=== PATIENT | male | born 1965 | race Caucasian/White ===

== ENCOUNTER 2018-03-02 13:32 | Inpatient (IN) | payer OTHER ==
[2018-03-02] MEDS ORDERED: ONDANSETRON HCL INJ/PF 4 MG/2 ML SDV IV ONE (14:19)
[2018-03-02] MEDS ORDERED: MORPHINE SULFATE 10 MG/ML INJ IV ONE ×3 (14:19→19:09)
--- NOTE | 2018-03-02 14:24 | ER Document Report ---
ED General - General Chief Complaint: Chest Pain Stated Complaint: CHEST PAIN Time Seen by Provider: 03/02/18 14:13 Mode of Arrival: Medic Information source: Patient Notes: 52-year-old male brought to the emergency department by EMS for complaints of chest pain. Patient states that the chest pain started on Thursday. He describes it as a pressure sensation across his anterior chest. He states that it resolved but came back again on Thursday and has been constant over the last 2 days. He is having associated nausea, vomiting, diaphoresis. Patient contacted EMS. He was given aspirin in route. Patient denies any alleviating or exacerbating factors. Patient states that he has a history of hypertension, hyperlipidemia and a family history of coronary artery disease. He states that his dad had an NM at age 50. Patient denies a history of diabetes, smoking, coronary artery disease. He also denies any recent travel, recent surgeries, calf swelling, history of DVT or PE. Patient states that he does have left calf pain. Patient states that he has a torn muscle in his left calf that is been bothering him. TRAVEL OUTSIDE OF THE [place] IN LAST 30 DAYS: No - HPI Onset: Other - 2 days Onset/Duration: Constant Quality of pain: Pressure Associated symptoms: Nausea, Vomiting Exacerbated by: Denies Relieved by: Denies Similar symptoms previously: No Recently seen / treated by doctor: No - Related Data Allergies/Adverse Reactions: No Known Allergies Allergy (Verified 03/18/16 15:48) Past Medical History - General Information source: Patient - Social History Smoking Status: Never Smoker Chew tobacco use (# tins/day): No Frequency of alcohol use: every weekend Drug Abuse: None Family History: None Patient has suicidal ideation: No Patient has homicidal ideation: No - Past Medical History Cardiac Medical History: Reports: Hx Hypercholesterolemia, Hx Hypertension Renal/ Medical History: Denies: Hx Peritoneal Dialysis GI Medical History: Reports: Hx Gastroesophageal Reflux Disease, Hx Hiatal Hernia - multiple repairs Psychiatric Medical History: Reports: Hx Anxiety, Hx Depression - anxiety Past Surgical History: Reports: Hx Abdominal Surgery - diverticiulits, Hx Testicular Surgery - left removed, Hx Tonsillectomy - Immunizations Hx Diphtheria, Pertussis, Tetanus Vaccination: Yes Review of Systems - Review of Systems Constitutional: No symptoms reported EENT: No symptoms reported Cardiovascular: Chest pain Respiratory: No symptoms reported Gastrointestinal: Nausea, Vomiting Genitourinary: No symptoms reported Male Genitourinary: No symptoms reported Musculoskeletal: No symptoms reported Skin: No symptoms reported Hematologic/Lymphatic: No symptoms reported Neurological/Psychological: No symptoms reported -: Yes All other systems reviewed and negative Physical Exam - Vital signs Vitals: Resp Pulse Ox 26 H 90 L 03/02/18 13:42 03/02/18 13:42 - Notes Notes: PHYSICAL EXAMINATION: GENERAL: Diaphoretic. HEAD: Atraumatic, normocephalic. EYES: Pupils equal round and reactive to light, extraocular movements intact, sclera anicteric, conjunctiva are normal. ENT: Nares patent, oropharynx clear without exudates. Moist mucous membranes. NECK: Normal range of motion, supple without lymphadenopathy LUNGS: Breath sounds clear to auscultation bilaterally and equal. No wheezes rales or rhonchi. HEART: Tachycardic ABDOMEN: Soft, nontender, nondistended abdomen. No guarding, no rebound. No masses appreciated. Musculoskeletal: Normal range of motion, no pitting edema. Left calf tenderness to palpation. NEUROLOGICAL: Cranial nerves grossly intact. Normal speech, normal gait. Normal sensory, motor exams PSYCH: Normal mood, normal affect. SKIN: Warm, Dry, normal turgor, no rashes or lesions noted. Course - Re-evaluation Re-evalutation: 03/02/18 14:35 EKG: Ventricular rate 127, RI interval 136, QRS duration 112, QTc 454, sinus tachycardia, no ST segment elevation. 03/02/18 19:21 Labs and imaging obtained. 2 sets of cardiac enzymes were done and are normal. D-dimer came back elevated. CTA of the chest was done. No PE appreciated. Venous Doppler of the left lower extremity done and negative. Patient given fluids, nitro, morphine while in the emergency department. Patient continues to be tachycardic around 115. On reevaluation, patient states that he has had some relief in his chest pain but it still present. Patient does not feel comfortable with discharge home. I spoke with the hospitalist, Dr. Holloway. She is agreeable with admitting the patient. Patient is currently stable. - Vital Signs Vital signs: Temp Pulse Resp BP Pulse Ox 98.5 F 21 H 122/93 H 94 03/02/18 14:01 03/02/18 14:01 03/02/18 14:01 03/02/18 14:01 - Laboratory Result Diagrams: 03/02/18 14:30 03/02/18 14:30 Laboratory results interpreted by me: 03/02/18 03/02/18 03/02/18 14:30 14:30 18:23 RBC 4.22 L D-Dimer 2.09 H Urine Protein 30 H Urine Ketones TRACE H Urine Urobilinogen 2.0 H Discharge - Discharge Clinical Impression: Tachycardia Chest pain Qualifiers: Chest pain type: unspecified Qualified Code(s): R07.9 - Chest pain, unspecified Condition: Good Disposition: ADMITTED OBSERVATION Admitting Provider: Hospitalist Unit Admitted: Telemetry
[2018-03-02] MEDS: NITROGLYCERIN 0.4 MG/TAB 25 TAB/BOTTLE SL ONE ×2 (14:38→14:53)
--- NOTE | 2018-03-02 14:39 | RADIOLOGY REPORT (SQ) ---
EXAM DESCRIPTION: CHEST SINGLE VIEW COMPLETED DATE/TIME: 03/02/2018 2:16 pm REASON FOR STUDY: bed 6 cp COMPARISON: 10/13/2014 EXAM PARAMETERS: NUMBER OF VIEWS: One view. TECHNIQUE: Single frontal radiographic view of the chest acquired. RADIATION DOSE: NA LIMITATIONS: Lordotic portable film FINDINGS: LUNGS AND PLEURA: No opacities, masses or pneumothorax. No pleural effusion. MEDIASTINUM AND HILAR STRUCTURES: No masses. Contour normal. HEART AND VASCULAR STRUCTURES: Borderline cardiomegaly accentuated by patient positioning BONES: No acute findings. HARDWARE: None in the chest. OTHER: No other significant finding. IMPRESSION: No acute findings TECHNICAL DOCUMENTATION: JOB ID: [id number] [employer]- All Rights Reserved Reading location - IP/workstation name: [email or web address]
[2018-03-02 14:41] LABS: ABSOLUTE BASOPHILS # (AUTO) 0.1 10^3/uL (0.0-0.2); ABSOLUTE EOSINOPHILS # (AUTO) 0.5 10^3/uL (0.0-0.6); ABSOLUTE LYMPHOCYTES (AUTO) 1.2 10^3/uL (0.5-4.7); ABSOLUTE MONOCYTES (AUTO) 0.9 10^3/uL (0.1-1.4); ABSOLUTE NEUT (AUTO) 6.1 10^3/uL (1.7-8.2); BASOPHILS % (AUTO) 0.8 % (0-2); EOSINOPHILS % (AUTO) 5.4 % (0-6); HEMATOCRIT 38.8 % (37.9-51.0); HEMOGLOBIN 13.6 g/dL (13.5-17.0); LYMPHOCYTES % (AUTO) 13.8 % (13-45); MEAN CORPUSCULAR HEMOGLOBIN 32.2 pg (27.0-33.4); MEAN CORPUSCULAR VOLUME 92 fl (80-97); PLATELET COUNT 153 10^3/uL (150-450); RED BLOOD COUNT 4.22 10^6/uL (4.35-5.55); RED CELL DISTRIBUTION WIDTH 13.4 % (11.5-14.0); TOTAL CELLS COUNTED % (AUTO) 100 %; WHITE BLOOD COUNT 8.8 10^3/uL (4.0-10.5)
[2018-03-02 15:11] LABS: ALANINE AMINOTRANSFERASE 37 U/L (21-72); ALBUMIN 3.5 g/dL (3.5-5.0); ALKALINE PHOSPHATASE 117 U/L (38-126); ANION GAP 10 (5-19); ASPARTATE AMINO TRANSFERASE 35 U/L (17-59); BILIRUBIN,DIRECT 0.4 mg/dL (0.0-0.4); BILIRUBIN,TOTAL 1.1 mg/dL (0.2-1.3); BLOOD UREA NITROGEN 20 mg/dL (7-20); CALCIUM 9.3 mg/dL (8.4-10.2); CARBON DIOXIDE 28 mmol/L (22-30); CHLORIDE 100 mmol/L (98-107); CREATINE KINASE 117 U/L (55-170); GLUCOSE 100 mg/dL (75-110); POTASSIUM 3.7 mmol/L (3.6-5.0); SODIUM 137.8 mmol/L (137-145); TOTAL PROTEIN 6.4 g/dL (6.3-8.2)
[2018-03-02 15:23] LABS: CREATINE KINASE MB 0.92 ng/mL (<4.55); TROPONIN I < 0.012 ng/mL
[2018-03-02] MEDS ORDERED: NORMAL SALINE 1000 ML 1,000 ML IV ONE ×2 (15:42→19:09)
--- NOTE | 2018-03-02 16:31 | RADIOLOGY REPORT (SQ) ---
EXAM DESCRIPTION: VENOUS UNILATERAL LOWER COMPLETED DATE/TIME: 03/02/2018 3:55 pm REASON FOR STUDY: pain left leg pain and swelling left leg COMPARISON: None. TECHNIQUE: Dynamic and static trujillo scale and color images acquired of the left leg venous system. Se lected spectral images acquired with additional compression and augmentation maneuvers. The contralat eral common femoral vein and saphenofemoral junction were also imaged. Images stored on PACS. LIMITATIONS: None. FINDINGS: LEFT COMMON FEMORAL: Normal phasicity, compression and augmentation. No visualized echogenic material on g ray scale. No defects on color images. FEMORAL: Normal compression and augmentation. No visualized echogenic material on trujillo scale. No defe cts on color images. POPLITEAL: Normal compression, augmentation. No visualized echogenic material on trujillo scale. No defec ts on color images. PERONEAL AND POSTERIOR TIBIAL VEINS: Normal compression, augmentation. No visualized echogenic materi al on trujillo scale. No defects on color images. GSV and SSV: Normal compression, augmentation. No visualized echogenic material on trujillo scale. No def ects on color images. ANY DEEP VENOUS INSUFFICIENCY: Not evaluated. ANY EVIDENCE OF POPLITEAL CYST: No. OTHER: No other significant finding. RIGHT COMMON FEMORAL VEIN AND SAPHENOFEMORAL JUNCTION: Normal phasicity, compression and augmentation. No visualized echogenic material on trujillo scale. No de fects on color images. IMPRESSION: NO EVIDENCE OF DVT OR SVT IN THE LEFT LEG. TECHNICAL DOCUMENTATION: JOB ID: [id number] [employer]- All Rights Reserved Reading location - IP/workstation name: [email or web address]
--- NOTE | 2018-03-02 18:00 | RADIOLOGY REPORT (SQ) ---
EXAM DESCRIPTION: CTA CHEST COMPLETED DATE/TIME: 03/02/2018 5:42 pm REASON FOR STUDY: chest pain, tachycardia, elevated d-dimer COMPARISON: None. TECHNIQUE: CT scan of the chest performed using helical scanning technique with dynamic intravenous contrast injection. Images reviewed with lung, soft tissue and bone windows. Reconstructed coronal and sagittal MPR images reviewed. Additional 3 dimensional post-processing performed to develop Maximal Intensity Projection images (NM P). All images stored on PACS. All CT scanners at this facility use dose modulation, iterative reconstruction, and/or weight based d osing when appropriate to reduce radiation dose to as low as reasonably achievable (ALARA). [facility]: Dose Right [facility]: CareDose [facility]: Dose Right [facility]: Teradose 4D [facility]: [employer] CONTRAST TYPE AND DOSE: contrast/concentration: Isovue mg/ml; Total Contrast Delivered: 81.7 ml; To jack Saline Delivered: 80.0 ml Contrast bolus optimized for the pulmonary arteries. Not diagnostic for the aorta. RENAL FUNCTION: BUN 20 creatinine 1.03 RADIATION DOSE: CT Rad equipment meets quality standard of care and radiation dose reduction techniq ues were employed. CTDIvol: 18.2 - 46.3 mGy. DLP: 1293 mGy-cm. . LIMITATIONS: None. FINDINGS: LUNGS AND PLEURA: No masses, infiltrates, or pneumothorax. No pleural effusions or pleura l calcifications. AORTA AND GREAT VESSELS: No aneurysm. Contrast bolus not optimized for the aorta. HEART: No pericardial effusion. Moderate to marked coronary artery calcifications. PULMONARY ARTERIES: No emboli visualized in the main pulmonary arteries or the segmental branches. HILAR AND MEDIASTINAL STRUCTURES: No identified masses or abnormal nodes. HARDWARE: None in the chest. UPPER ABDOMEN: No significant findings. Limited exam. THYROID AND OTHER SOFT TISSUES: No masses. No adenopathy. BONES: No acute or significant finding. 3D MIPS: Confirm above findings. OTHER: No other significant finding. IMPRESSION: NORMAL CTA OF THE CHEST. NO PULMONARY EMBOLI. COMMENT: Quality ID # [id number]: Final reports with documentation of one or more dose reduction techniques (e.g., Automated exposure control, adjustment of the mA and/or kV according to patient size, use of iterative reconstruction technique) TECHNICAL DOCUMENTATION: JOB ID: [id number] [employer]- All Rights Reserved Reading location - IP/workstation name: [email or web address]
[2018-03-02] MEDS ORDERED: LORAZEPAM INJ 2 MG/1 ML VIAL IV ONE ×2 (18:09→23:45)
[2018-03-02 18:51] LABS: APPEARANCE,URINE CLEAR; BILIRUBIN,URINE NEGATIVE (NEGATIVE); COLOR,URINE YELLOW; GLUCOSE, URINE NEGATIVE (NEGATIVE); KETONES,URINE TRACE mg/dL (NEGATIVE); LEUKOCYTE ESTERASE,URINE NEGATIVE (NEGATIVE); NITRITE,URINE NEGATIVE (NEGATIVE); PROTEIN,URINE 30 mg/dL (NEGATIVE)
[2018-03-02 18:52] LABS: URINE SPECIFIC GRAVITY > 1.060
[2018-03-02 19:02] LABS: URINE AMPHETAMINES SCREEN NEGATIVE; URINE BARBITURATES SCREEN NEGATIVE; URINE BENZODIAZEPINES SCREEN NEGATIVE; URINE COCAINE SCREEN NEGATIVE; URINE MARIJUANA (THC) SCREEN NEGATIVE; URINE METHADONE SCREEN NEGATIVE; URINE PHENCYCLIDINE SCREEN NEGATIVE
[2018-03-02] MEDS ORDERED: NITROGLYCERIN 0.4 MG/TAB 25 TAB/BOTTLE SL PRN (21:58)
[2018-03-02] MEDS ORDERED: TRAZODONE HCL 50 MG TABLET PO ONE (21:59)
[2018-03-02] MEDS ORDERED: DEXTROSE 40% GEL 15 GM TUBE PO PRN ×2 (22:00)
[2018-03-02] MEDS ORDERED: PROMETHAZINE HCL INJ 25 MG/1 ML VIAL IV PRN (22:00)
[2018-03-02] MEDS ORDERED: PROMETHAZINE HCL 25 MG TABLET PO PRN (22:00)
[2018-03-02] MEDS ORDERED: DEXTROSE 50%-WATER 25 GM/50 ML DISP.SYRIN IV PRN ×2 (22:00)
[2018-03-02] MEDS ORDERED: ACETAMINOPHEN 325 MG TABLET PO PRN (22:00)
[2018-03-02] MEDS ORDERED: GLUCAGON,HUMAN RECOMB 1 MG INJ SUBCUT PRN (22:00)
[2018-03-02] MEDS ORDERED: MAG HYDROX/AL HYDROX/SIMETH SUSP 30 ML UDCUP PO PRN (22:00)
[2018-03-02] MEDS ORDERED: PROPRANOLOL HCL 40 MG TABLET PO ONE (22:00)
[2018-03-02] MEDS ORDERED: CLONAZEPAM 1 MG TABLET PO PRN (22:06)
[2018-03-02] MEDS: MORPHINE SULFATE 10 MG/ML INJ IV PRN (22:11)
[2018-03-02] MEDS ORDERED: HYDROMORPHONE HCL INJ/PF 2 MG/ML AMPULE IV ONE (23:45)
--- NOTE | 2018-03-03 00:37 | PDOC H&P ---
History of Present Illness Admission Date/PCP: 03/02/18 19:32 Jamel Nava MD Patient complains of: Chest pain History of Present Illness: JUAN VERGARA is a 52 year old male with medical history remarkable for hypertension who comes to the emergency department with intermittent chest pain since last Thursday. Refers the pain as in the center of his chest radiated to the left side, sharp in nature, up to 9-10/10 intensity, at that time he "cannot move", since it is started last week is not going completely away, patient does not take any nitroglycerin at home or any other pain medication. Tells me every time he is a walk-in or doing any exertion like going to the bathroom in the ED the pain comes back really bad. Associated with the pain diaphoresis, nausea, dizziness. Denies vomiting, palpitations, fever or chills. Also complains of lower extremities edema up to his shins on and off. Patient has history of anxiety but tells me that this is different to his anxiety attacks. Denies having any stress test or cardiac catheterization in the past. In the emergency department concerns of his persistent tachycardia and CTA was done which came back negative, patient is on propanolol for his anxiety but he did not take it today. Chest x-ray negative. Patient had aspirin en route to the hospital. In the ED given 4 mg of IV morphine with partial improvement. Given 1 sublingual nitroglycerin but his blood pressure went borderline. Patient complaint of left calf pain and lower extremity ultrasound on the left side was done and came negative for DVT. EKG with a ventricular rate of 127 bpm, no acute ST elevation, ST depression or T wave inversions. 2 sets of cardiac enzymes negative. Past Medical History Cardiac Medical History: Reports: Hyperlipidema, Hypertension Neurological Medical History: Reports: Other - Headaches Endocrine Medical History: Reports: Hypothyroidism GI Medical History: Reports: Diverticulitis, Gastroesophageal Reflux Disease, Hiatal Hernia - multiple repairs Psychiatric Medical History: Reports: Depression - anxiety, General Anxiety Disorder Past Surgical History Past Surgical History: Left testicle removed Partial colon resection secondary to diverticulitis Past Surgical History: Reports: Herniorrhaphy - Hiatal hernia, Tonsillectomy Social History Smoking Status: Never Smoker Frequency of Alcohol Use: Heavy - Patient has a started drinking heavily 2 months ago, drinks 1 bottle a day. Last drink Thursday night. Last Alcohol Use: 02/27/18 Hx Recreational Drug Use: No Drugs: None Hx Prescription Drug Abuse: No Past Social History Note: Lives with his who is at the bedside - Advance Directive Resuscitation Status: Full Code Family History Family History: Father at 50 years old with with history of massive myocardial infarction, mother alive 70 years old with heart problems. Grandmother with quadruple bypass surgery. Parental Family History Reviewed: Yes - As above Children Family History Reviewed: NA Sibling(s) Family History Reviewed.: NA Medication/Allergy Home Medications: Amitriptyline HCl [Elavil 50 mg Tablet] 100 mg PO QHS 03/02/18 Atorvastatin Calcium [Lipitor 40 mg Tablet] 40 mg PO QHS 03/02/18 Duloxetine HCl [Cymbalta] 60 mg PO DAILY 03/02/18 Hydroxyzine Pamoate [Vistaril 25 mg Capsule] 25 mg PO TID 03/02/18 Levothyroxine Sodium [Synthroid 0.112 mg Tablet] 0.112 mg PO Q6AM 03/02/18 Lisinopril [Zestril] 10 mg PO QHS 03/02/18 Propranolol HCl [Inderal 40 mg Tablet] 40 mg PO BID 03/02/18 Ranitidine HCl [Zantac] 300 mg PO DAILY 03/02/18 Allergies/Adverse Reactions: No Known Allergies Allergy (Verified 03/18/16 15:48) Physical Exam Vital Signs: Temp Pulse Resp BP Pulse Ox 98.0 F 118 H 19 103/64 95 03/02/18 22:35 03/02/18 22:35 03/02/18 22:35 03/02/18 22:35 03/02/18 22:35 Intake & Output 03/01/18 03/02/18 03/03/18 06:59 06:59 06:59 Intake Total 1000 Balance 1000 Weight 91.8 kg Additional comments: General appearance: Well-developed, well-nourished, alert and cooperative, and appears to be in acute distress secondary to chest pain/anxiety Head: Normocephalic Eyes: PEERL, EOMI, vision is grossly intact. Ears: External auditory canal and tympanic membranes clear, hearing grossly intact. Nose: No nasal discharge. Throat: Oral cavity and pharynx normal. No inflammation, swelling, exudate or lesions. Neck: Neck supple, nontender without lymphadenopathy, masses or thyromegaly. Cardiac: Normal S1 and S2. No S3, S4 or murmurs. Rhythm is regular and mild tachycardic. There is no peripheral edema, cyanosis or pallor. Extremities are warm and well perfused. Capillary refill is less than 2 seconds. No carotid bruits. Lungs: With bibasilar rales, left more than right, no appreciate rhonchi or wheezing or diminished breath sounds. Not using accessory muscles. Abdomen: Positive bowel sounds. Soft. Nondistended, nontender. No guarding or rebound. No masses. No hepatosplenomegaly Extremities: No significant deformity or joint abnormality. No edema. Peripheral pulses intact. No varicosities. Neurological: Cranial nerves II through XII grossly intact. Strength and sensation symmetric and intact throughout. Reflexes 2+ throughout. Skin: Skin normal color, texture and turgor with no lesions or eruptions, warm and dry. Psychiatric: The mental examination revealed the patient was oriented to person , place, and time. The patient was able to demonstrate good judgment on recent , without hallucinations, abnormal affect or abnormal behaviors. Results Laboratory Results: 03/02/18 03/02/18 03/02/18 14:30 14:30 14:30 WBC 8.8 RBC 4.22 L Hgb 13.6 Hct 38.8 MCV 92 MCH 32.2 MCHC 35.0 RDW 13.4 Plt Count 153 Seg Neutrophils % 70.0 Lymphocytes % 13.8 Monocytes % 10.0 Eosinophils % 5.4 Basophils % 0.8 Absolute Neutrophils 6.1 Absolute Lymphocytes 1.2 Absolute Monocytes 0.9 Absolute Eosinophils 0.5 Absolute Basophils 0.1 D-Dimer Sodium 137.8 Potassium 3.7 Chloride 100 Carbon Dioxide 28 Anion Gap 10 BUN 20 Creatinine 1.03 Est GFR ( Amer) > 60 Est GFR (Non-Af Amer) > 60 Glucose 100 Calcium 9.3 Total Bilirubin 1.1 Direct Bilirubin 0.4 AST 35 ALT 37 Alkaline Phosphatase 117 Creatine Kinase 117 CK-MB (CK-2) 0.92 Troponin I < 0.012 Total Protein 6.4 Albumin 3.5 Urine Color Urine Appearance Urine pH Ur Specific [place] Urine Protein Urine Glucose (UA) Urine Ketones Urine Blood Urine Nitrite Urine Bilirubin Urine Urobilinogen Ur Leukocyte Esterase Urine WBC (Auto) Urine RBC (Auto) Squamous Epi Cells Auto Urine Mucus (Auto) Urine Ascorbic Acid Urine Opiates Screen Urine Methadone Screen Ur Barbiturates Screen Ur Phencyclidine Scrn Ur Amphetamines Screen U Benzodiazepines Scrn Urine Cocaine Screen U Marijuana (THC) Screen 03/02/18 03/02/18 03/02/18 14:30 17:46 18:23 WBC RBC Hgb Hct MCV MCH MCHC RDW Plt Count Seg Neutrophils % Lymphocytes % Monocytes % Eosinophils % Basophils % Absolute Neutrophils Absolute Lymphocytes Absolute Monocytes Absolute Eosinophils Absolute Basophils D-Dimer 2.09 H Sodium Potassium Chloride Carbon Dioxide Anion Gap BUN Creatinine Est GFR ( Amer) Est GFR (Non-Af Amer) Glucose Calcium Total Bilirubin Direct Bilirubin AST ALT Alkaline Phosphatase Creatine Kinase CK-MB (CK-2) Troponin I < 0.012 Total Protein Albumin Urine Color YELLOW Urine Appearance CLEAR Urine pH 5.0 Ur Specific [place] > 1.060 Urine Protein 30 H Urine Glucose (UA) NEGATIVE Urine Ketones TRACE H Urine Blood NEGATIVE Urine Nitrite NEGATIVE Urine Bilirubin NEGATIVE Urine Urobilinogen 2.0 H Ur Leukocyte Esterase NEGATIVE Urine WBC (Auto) 2 Urine RBC (Auto) 7 Squamous Epi Cells Auto <1 Urine Mucus (Auto) FEW Urine Ascorbic Acid NEGATIVE Urine Opiates Screen Urine Methadone Screen Ur Barbiturates Screen Ur Phencyclidine Scrn Ur Amphetamines Screen U Benzodiazepines Scrn Urine Cocaine Screen U Marijuana (THC) Screen 03/02/18 18:23 WBC RBC Hgb Hct MCV MCH MCHC RDW Plt Count Seg Neutrophils % Lymphocytes % Monocytes % Eosinophils % Basophils % Absolute Neutrophils Absolute Lymphocytes Absolute Monocytes Absolute Eosinophils Absolute Basophils D-Dimer Sodium Potassium Chloride Carbon Dioxide Anion Gap BUN Creatinine Est GFR ( Amer) Est GFR (Non-Af Amer) Glucose Calcium Total Bilirubin Direct Bilirubin AST ALT Alkaline Phosphatase Creatine Kinase CK-MB (CK-2) Troponin I Total Protein Albumin Urine Color Urine Appearance Urine pH Ur Specific [place] Urine Protein Urine Glucose (UA) Urine Ketones Urine Blood Urine Nitrite Urine Bilirubin Urine Urobilinogen Ur Leukocyte Esterase Urine WBC (Auto) Urine RBC (Auto) Squamous Epi Cells Auto Urine Mucus (Auto) Urine Ascorbic Acid Urine Opiates Screen UNCONFIRMED POSITIVE Urine Methadone Screen NEGATIVE Ur Barbiturates Screen NEGATIVE Ur Phencyclidine Scrn NEGATIVE Ur Amphetamines Screen NEGATIVE U Benzodiazepines Scrn NEGATIVE Urine Cocaine Screen NEGATIVE U Marijuana (THC) Screen NEGATIVE EKG Comments: Sinus tachycardia with a ventricular rate of 127 bpm, no acute ST elevation, ST depressions or T wave inversions. Impressions: Chest X-Ray 03/02/18 13:35 IMPRESSION: No acute findings Venous Doppler Study 03/02/18 14:20 IMPRESSION: NO EVIDENCE OF DVT OR SVT IN THE LEFT LEG. Chest/Abdomen CTA 03/02/18 16:24 IMPRESSION: NORMAL CTA OF THE CHEST. NO PULMONARY EMBOLI. Assessment & Plan - Diagnosis (1) Chest pain Qualifiers: Chest pain type: unspecified Qualified Code(s): R07.9 - Chest pain, unspecified Is this a current diagnosis for this admission?: Yes Plan: Patient complains of chest since last Thursday, he refers to me this as sharp and by the ED attending documented tightness, seems to be exertional chest pain. Never had a stress test or cardiac catheterization. Will place the patient on telemetry monitoring. So far 2 cardiac enzymes negative, will complete 3. Nitroglycerin sublingual as needed if his blood pressure tolerates that, morphine 1 mg every 3 hours IV as needed. A stress test during the day. Hemoglobin A1c and lipid panel in the morning. Strong family history of cardiac disease. In the ED a total of 13 mg IV morphine given; when the patient was transferred to the floor he was still complaining of chest pains. Given 1 mg of Dilaudid IV +1 mg of Ativan IV. Will monitor. (2) Alcohol dependence Is this a current diagnosis for this admission?: Yes Plan: Patient has started drinking heavily 2 months ago. I am not sure if his tachycardia is related to alcohol withdrawal symptoms, will watch for alcohol withdrawal, and placing him on Ativan 2 mg IV as needed for withdrawal symptomatology. His last drink was last Thursday. I am adding serum alcohol levels to prior labs. (3) Anxiety Is this a current diagnosis for this admission?: Yes Plan: His tachycardia is possible related with his anxiety. CTA negative. Chest x- ray negative. Patient missed his dose of propranolol today. Were going to give his dose of propanolol tonight as per his is 40 mg. Will be on Klonopin 0.5 mg as needed. Trazodone 50 mg p.o. given. (4) Hypothyroidism Qualifiers: Hypothyroidism type: unspecified Qualified Code(s): E03.9 - Hypothyroidism , unspecified Is this a current diagnosis for this admission?: Yes Plan: Continue with Synthroid (5) Hypertension Qualifiers: Hypertension type: essential hypertension Qualified Code(s): I10 - Essential (primary) hypertension Is this a current diagnosis for this admission?: Yes Plan: Will resume his antihypertensive medications for tomorrow, if blood pressure still borderline were going to place him on hold. - Time Time Spent: 50 to 70 Minutes
[2018-03-03] MEDS: MORPHINE SULFATE 10 MG/ML INJ IV PRN ×5 (03:10→23:34)
[2018-03-03] MEDS: LORAZEPAM INJ 2 MG/1 ML VIAL IV PRN (03:10)
[2018-03-03 07:05] LABS: CHOLESTEROL 168.71 mg/dL (0-200); TRIGLYCERIDES 95 mg/dL (<150)
[2018-03-03 07:16] LABS: DIRECT LDL 114 mg/dL (<100)
--- NOTE | 2018-03-03 07:27 | EKG REPORT ---
SEVERITY:- ABNORMAL ECG - SINUS TACHYCARDIA NONSPECIFIC IVCD WITH LAD : Confirmed by: Jim Borden 03-Mar-2018 07:26:01
--- NOTE | 2018-03-03 11:58 | PDOC DISCHARGE SUMMARY ---
General - Admit/Disc Date/PCP Admission Date/Primary Care Provider: 03/02/18 19:32 Discharge Date: 03/03/18 - Discharge Diagnosis (1) Chest pain Is this a current diagnosis for this admission?: Yes Summary: The patient was admitted yesterday for substernal chest pain. For troponin studies were less than 0.012. There was no relief with nitroglycerin or morphine. The chest pain is likely noncardiac. CT angiogram does show coronary artery disease and there is a positive family history. For that reason I am referring him to cardiology and he will need an outpatient stress test. He also states in the past he has had an echocardiogram that showed enlarged heart but he cannot remember an ejection fraction or any other issues. (2) GERD with esophagitis Is this a current diagnosis for this admission?: Yes Summary: The patient is describing pain consistent with esophagitis and possibly esophageal spasm. He is only been on an H2 lyn. I have given him prescriptions for Carafate and Protonix. He is also on propranolol and amitriptyline and these can possibly help esophageal spasm. He does have a history of alcohol dependence. I am going to give him a dose of Protonix and Carafate prior to discharge. I also strongly suggested that he see gastroenterology. Unfortunately states that he cannot get his prescription filled because [facility]. I told him that he should do over-the- counter Prilosec 40 mg twice daily and a Tums tablet before meals and at bedtime until he can get his prescriptions filled. He absolutely needs to see cardiology, GI and primary care. It is unlikely that his hypothyroidism is responsible for any symptoms. (3) Hypothyroidism Is this a current diagnosis for this admission?: Yes Summary: Continue levothyroxine 112 mcg daily. Follow-up with primary care/ endocrinology for blood work. (4) Anxiety Is this a current diagnosis for this admission?: Yes Summary: Anxiety certainly is a contributor to noncardiac chest pain. This also could be contributing to tachycardia (as can his discomfort). He should continue on his amitriptyline. Propranolol can also help with anxiety somewhat. He should follow-up with his primary care physician for additional treatment possibilities. (5) Alcohol dependence Is this a current diagnosis for this admission?: Yes Summary: Patient has not exhibited acute withdrawal symptoms. With a history of alcohol dependency certainly is at risk for esophagitis and esophageal varices as well as gastritis. The Carafate and Protonix certainly will help with any GI symptoms. As noted above he should follow-up with gastroenterology and his primary care physician. Consider mental health counseling for alcohol dependence. - Additional Information Resuscitation Status: Full Code Discharge Activity: Balance Activity w/Rest Prescriptions: Pantoprazole Sodium [Protonix] 40 mg PO DAILY 30 Days #30 tablet. Sucralfate [Carafate 1 gm Tablet] 1 gm PO ACHS #120 tablet Home Medications: Amitriptyline HCl [Elavil 50 mg Tablet] 100 mg PO QHS 03/02/18 Atorvastatin Calcium [Lipitor 40 mg Tablet] 40 mg PO QHS 03/02/18 Duloxetine HCl [Cymbalta] 60 mg PO DAILY 03/02/18 Hydroxyzine Pamoate [Vistaril 25 mg Capsule] 25 mg PO TID 03/02/18 Levothyroxine Sodium [Synthroid 0.112 mg Tablet] 0.112 mg PO Q6AM 03/02/18 Lisinopril [Zestril] 10 mg PO QHS 03/02/18 Propranolol HCl [Inderal 40 mg Tablet] 40 mg PO BID 03/02/18 Pantoprazole Sodium [Protonix] 40 mg PO DAILY 30 Days #30 tablet. 03/03/18 Sucralfate [Carafate 1 gm Tablet] 1 gm PO ACHS #120 tablet 03/03/18 History of Present Illness History of Present Illness: JUAN VERGARA is a 52 year old male who was admitted last evening for substernal chest pain. He has a family history of heart disease. He states that he had an echocardiogram in the past and they said he had a "big heart" but he was unaware of details. His serial troponins x4 were less than the detectable limit of 0.012. He did go down for a stress test but was having substernal discomfort. The stress test was not done. He should follow-up with cardiology as an outpatient (coronary artery disease seen on CT angiogram of the chest) as well as gastroenterology for the high likelihood of reflux or possibly hiatal hernia. Hospital Course Hospital Course: The patient had a benign hospital course. His substernal chest pain was not relieved with nitroglycerin or morphine and it is most likely esophageal in nature. I did discuss with the patient the possibilities of hiatal hernia ( mother does have 1) as well as reflux. He does state that he has a low trigger for emesis and this could be a product of severe reflux as well. Physical Exam Vital Signs: Temp Pulse Resp BP Pulse Ox 97.8 F 105 H 18 114/91 H 95 03/03/18 07:25 03/03/18 07:25 03/03/18 07:25 03/03/18 07:25 03/03/18 07:25 Intake & Output 03/02/18 03/03/18 03/04/18 06:59 06:59 06:59 Intake Total 1000 Balance 1000 Weight 91.8 kg General appearance: PRESENT: mild distress, well-developed Eye exam: PRESENT: conjunctiva pink. ABSENT: scleral icterus Ear exam: PRESENT: normal external ear exam Mouth exam: PRESENT: dry mucosa Neck exam: ABSENT: carotid bruit, JVD, lymphadenopathy Respiratory exam: PRESENT: clear to auscultation duane, symmetrical, unlabored. ABSENT: rales, rhonchi, wheezes Cardiovascular exam: PRESENT: +S1, +S2, tachycardia Pulses: PRESENT: normal carotid pulses GI/Abdominal exam: PRESENT: normal bowel sounds, soft. ABSENT: guarding, tenderness Extremities exam: ABSENT: calf tenderness, joint swelling, pedal edema Musculoskeletal exam: PRESENT: normal inspection Neurological exam: PRESENT: alert, awake, oriented to person, oriented to place , oriented to situation Psychiatric exam: PRESENT: anxious, appropriate affect. ABSENT: depressed Focused psych exam: ABSENT: delusional, paranoid, restlessness Results Laboratory Results: 03/03/18 05:46 Triglycerides 95 Cholesterol 168.71 LDL Cholesterol Direct 114 H VLDL Cholesterol 19.0 HDL Cholesterol 53 03/03/18 03/03/18 00:06 05:46 Troponin I < 0.012 < 0.012 Impressions: Chest X-Ray 03/02/18 13:35 IMPRESSION: No acute findings Venous Doppler Study 03/02/18 14:20 IMPRESSION: NO EVIDENCE OF DVT OR SVT IN THE LEFT LEG. Chest/Abdomen CTA 03/02/18 16:24 IMPRESSION: NORMAL CTA OF THE CHEST. NO PULMONARY EMBOLI. Qualifiers - * PATIENT BEING DISCHARGED WITH ANY OF THE FOLLOWING DIAGNOSIS: No Plan Discharge Plan: As noted above the patient will be discharged on an aggressive regimen for reflux including Carafate and Protonix. I did give him a suggested regimen of [id number] omeprazole and Tums until he can get his prescriptions filled. He had 4- troponin studies. I did refer him to cardiology and he will need a stress test as an outpatient. He also reports a history of cardiomegaly etiology unknown. He should have an echocardiogram as well. Because of his family history and his current symptoms I strongly suggested a gastroenterology appointment with likely endoscopy. Time Spent: Greater than 30 Minutes
[2018-03-03] MEDS ORDERED: PANTOPRAZOLE SODIUM 40 MG VIAL IV ONE (12:30)
[2018-03-03] MEDS ORDERED: SUCRALFATE 1 GM TABLET PO ONE (13:00)
[2018-03-03] MEDS: HYDROXYZINE PAMOATE 25 MG CAPSULE PO SCH ×2 (14:03→18:46)
[2018-03-03] MEDS: ENOXAPARIN SODIUM INJ 40 MG/0.4 ML DISP.SYRIN SUBCUT SCH (14:05)
[2018-03-03] MEDS ORDERED: DEXTROSE 50%-WATER 25 GM/50 ML DISP.SYRIN IV PRN ×2 (17:30)
[2018-03-03] MEDS ORDERED: GLUCAGON,HUMAN RECOMB 1 MG INJ SUBCUT PRN (17:30)
[2018-03-03] MEDS ORDERED: DEXTROSE 40% GEL 15 GM TUBE PO PRN ×2 (17:30)
[2018-03-03] MEDS ORDERED: PROPRANOLOL HCL 40 MG TABLET PO SCH ×2 (18:00→22:00)
--- NOTE | 2018-03-03 19:37 | PDOC CONSULTATION ---
Consultation Consult Date: 03/03/18 Attending physician:: AAYUSH STEWART Consult reason:: Chest pain History of Present Illness Admission Date/PCP: 03/02/18 19:32 Patient complains of: Chest pain History of Present Illness: JUAN VERGARA is a 52 year old male with medical history remarkable for hypertension, dyslipidemia and family history of premature CAD who comes to the emergency department with intermittent chest pain since last Thursday. Refers the pain as in the center of his chest radiated to the left side, sharp in nature, up to 9-10/10 intensity, at that time he "cannot move", since it is started last week is not going completely away, patient does not take any nitroglycerin at home or any other pain medication. Tells me every time he is a walk-in or doing any exertion like going to the bathroom in the ED the pain comes back really bad. Associated with the pain diaphoresis, nausea, dizziness. Denies vomiting, palpitations, fever or chills. Also complains of lower extremities edema up to his shins on and off. Patient has history of anxiety but tells me that this is different to his anxiety attacks. Denies having any stress test or cardiac catheterization in the past. In the emergency department concerns of his persistent tachycardia and CTA was done which came back negative, patient is on propanolol for his anxiety but he did not take it today. Chest x-ray negative. Patient had aspirin en route to the hospital. In the ED given 4 mg of IV morphine with partial improvement. Given 1 sublingual nitroglycerin but his blood pressure went borderline. Patient complaint of left calf pain and lower extremity ultrasound on the left side was done and came negative for DVT. EKG with a ventricular rate of 127 bpm, no acute ST elevation, ST depression or T wave inversions. 2 sets of cardiac enzymes negative. This history obtained by the hospitalist was reviewed. Patient gives history of hypertension, dyslipidemia and also family history of premature coronary artery disease. Patient claims he used to run marathons in the past but stopped doing it few years ago. Patient denied any known history of coronary artery disease. He had a CT angiogram of the chest which did reveal coronary calcification. This is indicative of CAD. Patient scheduled for a 2D echocardiogram and a nuclear stress test. Patient looks well flushed. He does take alcohol on a regular basis. He denies however getting drunk. Past Medical History Cardiac Medical History: Reports: Hyperlipidema, Hypertension Neurological Medical History: Reports: Other - Headaches Endocrine Medical History: Reports: Hypothyroidism GI Medical History: Reports: Diverticulitis, Gastroesophageal Reflux Disease, Hiatal Hernia - multiple repairs Psychiatric Medical History: Reports: Depression - anxiety, General Anxiety Disorder Past Surgical History Past Surgical History: Reports: Herniorrhaphy - Hiatal hernia, Tonsillectomy Social History Information Source: Patient Smoking Status: Never Smoker Frequency of Alcohol Use: Heavy - Patient has a started drinking heavily 2 months ago, drinks 1 bottle a day. Last drink Thursday night. Hx Recreational Drug Use: No Drugs: None Hx Prescription Drug Abuse: No - Advance Directive Resuscitation Status: Full Code Family History Family History: CAD - Premature CAD on his mother's side including his mother. Parental Family History Reviewed: Yes Children Family History Reviewed: Yes Sibling(s) Family History Reviewed.: Yes Medication/Allergy Home Medications: Amitriptyline HCl [Elavil 50 mg Tablet] 100 mg PO QHS 03/02/18 Atorvastatin Calcium [Lipitor 40 mg Tablet] 40 mg PO QHS 03/02/18 Duloxetine HCl [Cymbalta] 60 mg PO DAILY 03/02/18 Hydroxyzine Pamoate [Vistaril 25 mg Capsule] 25 mg PO TID 03/02/18 Levothyroxine Sodium [Synthroid 0.112 mg Tablet] 0.112 mg PO Q6AM 03/02/18 Lisinopril [Zestril] 10 mg PO QHS 03/02/18 Propranolol HCl [Inderal 40 mg Tablet] 40 mg PO BID 03/02/18 Pantoprazole Sodium [Protonix] 40 mg PO DAILY 30 Days #30 tablet.dr 03/03/18 Sucralfate [Carafate 1 gm Tablet] 1 gm PO ACHS #120 tablet 03/03/18 Allergies/Adverse Reactions: No Known Allergies Allergy (Verified 03/18/16 15:48) Review of Systems Review of Systems: Please see history of present illness and past medical history as wall. Constitutional: No fever or chills reported. Head : No recent chronic headaches, recent head injury. Eyes: No recent eye pain, diplopia, redness, discharge, acute visual changes. Ears: No recent chronic ear pain, acute hearing loss, ear discharge. Oral cavity: No recent ulcerations, bleeding, oral cavity discomfort. Neck: No recent acute neck pain reported. Hematologic: No recent easy bruising or bleeding. Lymphatic: No recent lymph node enlargement reported. Cardiovascular system review: See history of present illness. Respiratory system review: No hemoptysis or blood clots in the lungs reported. Mild Shortness of breath on exertion Gastrointestinal system review: Negative for any recent acute hematemesis, melena. History of reflux Genitourinary system review: No recent acute or chronic hematuria, flank pain, UTI etc. reported. Skin system review: Negative for any recent abnormal bruising, no rash, no pruritus reported. Neurologic: No prior history of strokes, mini strokes, seizure disorder. Psychologic: No history of major psychosis or major depression reported. History of anxiety disorder and other dysthymia Musculoskeletal: Minor aches and pains reported. No acute joint swelling reported. Endocrine: No recent polyuria, polydipsia, recent heat or cold intolerance. Physical Exam Vital Signs: Temp Pulse Resp BP Pulse Ox 98.2 F 120 H 16 120/71 96 03/03/18 15:22 03/03/18 15:22 03/03/18 15:22 03/03/18 15:22 03/03/18 15:22 Intake & Output 03/02/18 03/03/18 03/04/18 06:59 06:59 06:59 Intake Total 1000 828 Balance 1000 828 Weight 91.8 kg Results Laboratory Results: 03/03/18 05:46 Triglycerides 95 Cholesterol 168.71 LDL Cholesterol Direct 114 H VLDL Cholesterol 19.0 HDL Cholesterol 53 03/03/18 03/03/18 03/03/18 00:06 05:46 11:40 Troponin I < 0.012 < 0.012 < 0.012 EKG Comments: Sinus tachycardia, no acute ST-T wave changes are noted Impressions: Chest X-Ray 03/02/18 13:35 IMPRESSION: No acute findings Venous Doppler Study 03/02/18 14:20 IMPRESSION: NO EVIDENCE OF DVT OR SVT IN THE LEFT LEG. Chest/Abdomen CTA 03/02/18 16:24 IMPRESSION: NORMAL CTA OF THE CHEST. NO PULMONARY EMBOLI. Assessment & Plan - Diagnosis (1) Chest pain Qualifiers: Chest pain type: unspecified Qualified Code(s): R07.9 - Chest pain, unspecified Is this a current diagnosis for this admission?: Yes (2) GERD with esophagitis Is this a current diagnosis for this admission?: Yes (3) Hypertension Qualifiers: Hypertension type: essential hypertension Qualified Code(s): I10 - Essential (primary) hypertension Is this a current diagnosis for this admission?: Yes (4) Hypothyroidism Qualifiers: Hypothyroidism type: unspecified Qualified Code(s): E03.9 - Hypothyroidism , unspecified Is this a current diagnosis for this admission?: Yes (5) Tachycardia Is this a current diagnosis for this admission?: Yes (6) Hyperlipidemia Qualifiers: Hyperlipidemia type: unspecified Qualified Code(s): E78.5 - Hyperlipidemia , unspecified Is this a current diagnosis for this admission?: Yes (7) Coronary artery calcification seen on computed tomography Is this a current diagnosis for this admission?: Yes (8) Alcohol dependence Qualifiers: Substance use status: uncomplicated Qualified Code(s): F10.20 - Alcohol dependence, uncomplicated Is this a current diagnosis for this admission?: Yes (9) Anxiety Is this a current diagnosis for this admission?: Yes - Notes Notes: Chest pain: Intermediate probability that the chest discomfort is from CAD. Patient has been noted to have coronary calcification. A nuclear stress test has been scheduled. Gastroesophageal reflux: Patient being placed on proton pump inhibitor. Patient will need endoscopy at a later date. Hypertension: Blood pressure goal should be 135/85 or less in this young patient with underlying CAD. Hypothyroidism: I am checking a TSH level. Patient is tachycardic therefore may have iatrogenic hyperthyroidism. Hyperlipidemia: Agree with high potency statin therapy. Coronary calcification: Treat with statins. Nuclear stress test scheduled. 2D echo is scheduled. Alcohol dependence: Discussed diet it can cause cardiomyopathy, distal esophagitis etc. patient has been advised abstinence. Anxiety: Possible withdrawal. Tachycardia: Possible withdrawal versus excess thyroid replacement versus anxiety. - Time Time Spent: 30 to 50 Minutes - CODE STATUS was discussed, patient remains full code. Surrogate decision-maker unchanged. Multiple medical problems were addressed. More than 50% of the time spent coordinating care, discussing management plans with involved caregivers. Management plans discussed with involved personnels. Medical decision making was of moderate to high complexity , patient's has multiple comorbidities. Medications reviewed and adjusted accordingly: Yes
[2018-03-03] MEDS: AMITRIPTYLINE HCL 50 MG TABLET PO SCH (23:38)
[2018-03-03] MEDS: LISINOPRIL 10 MG TABLET PO SCH (23:38)
[2018-03-03] MEDS: ATORVASTATIN CALCIUM 40 MG TABLET PO SCH (23:39)
[2018-03-03] MEDS: PANTOPRAZOLE SODIUM 40 MG VIAL IV SCH (23:40)
[2018-03-04] MEDS: MORPHINE SULFATE 10 MG/ML INJ IV PRN ×3 (06:18→14:21)
[2018-03-04] MEDS: LEVOTHYROXINE SODIUM 0.112 MG TABLET PO SCH (06:19)
[2018-03-04] MEDS: PANTOPRAZOLE SODIUM 40 MG VIAL IV SCH ×2 (12:23→21:34)
[2018-03-04] MEDS: ENOXAPARIN SODIUM INJ 40 MG/0.4 ML DISP.SYRIN SUBCUT SCH (12:27)
[2018-03-04] MEDS ORDERED: PROMETHAZINE HCL INJ 25 MG/1 ML VIAL IV PRN (13:00)
[2018-03-04] MEDS ORDERED: REGADENOSON INJ 0.4 MG/5 ML DISP.SYRIN IV ONE (14:04)
[2018-03-04] MEDS ORDERED: AMINOPHYLLINE INJ/PF 250 MG/10 ML SDV IV ONE (14:04)
[2018-03-04] MEDS: HYDROXYZINE PAMOATE 25 MG CAPSULE PO SCH ×3 (14:26→18:38)
--- NOTE | 2018-03-04 14:41 | DRAGON STRESS TEST REPORT ---
INTRAVENOUS LEXISCAN CARDIOLITE STRESS TEST USING SINGLE PHOTON EMMISION COMPUTERIZED TOMOGRAPHIC. DATE OF PROCEDURE: March 04, 2018, INDICATION : Chest pain CARDIAC RISK FACTORS: Diabetes, hypertension, dyslipidemia RESTING EKG: Sinus rhythm, no acute ST-T wave changes are noted. STRESS EKG: No significant ST segment changes noted with LexiScan bolus REASON FOR TERMINATION: Protocol. PROCEDURE REPORT: Baseline heart rate 104 beats per minute with blood pressure of 98/69. Patient had no significant complaints. Patient was bolused with Lexiscan 0.4 mg intravenously followed by saline bolus. Heart rate at 2 minutes post bolus 115 with a blood pressure of 107/47. 3 minutes post bolus heart rate 114 with blood pressure of 106/52. No significant EKG changes were noted. Patient had no significant complaints during the procedure or postprocedure. CONCLUSIONS: Normal EKG and hemodynamic response to IV LexiScan. NUCLEAR DATA: At rest the patient was given 10.66 millicuries of technetium 99 sestamibi injected intravenously. As per protocol rest gated SPECT images were obtained. On day of stress test, the patient was given intravenous LexiScan at a dose of 0.4 mg in 5 mL intravenously, followed by flush with normal saline. Subsequently the stress dose of 30.7 millicuries of technetium 99 sestamibi was injected intravenously. As per protocol stress gated images were obtained. NUCLEAR INTERPRETATION: Both raw and processed data were used for interpretation. Visual, qualitative, computer-generated quantitative data was used. There was good myocardial uptake of technetium compound. Motion artifact and soft tissue attenuations were noted. Increased visceral uptake was noted. No definitive areas of transient perfusion defect noted, No definitive areas of fixed perfusion defect or scars noted. EKG gated imaging showed LV EF at 38 %, rest and stress gated EF similar visually. Mild diffuse hypokinesia noted. T. I D. ratio was 1.11. Lung heart ratio noted to be within normal limits 0.34. No significant extracardiac and abnormal radiotracer activities were noted. RV free wall uptake was noted to be WNL. IMPRESSION: Also refer to comments under nuclear interpretation. Also test results needs to be interpreted in the context of pretest probability. 1. No definitive areas of transient perfusion defect noted. 2. There is no definitive scintigraphic evidence of myocardial infarction/scar. 3. EKG gated imaging shows left ventricular ejection fraction of approx. 38 %. Mild diffuse hypokinesia noted. 4. Clinical correlation requested as worse disease and or balanced ischemia could be missed. In approximately 10% of the cases Lexiscan may not cause adequate vasodilatory stress. RECOMMENDATIONS: Aggressive risk factor modification and medical management. Further evaluation may be needed if continued symptoms or other high risk indicators are noted on clinical evaluation. Close cardiology follow-up is also recommended. Clinical correlation with echocardiogram derived ejection fraction. Inability to exercise by itself can lead to increased cardiovascular event risks. Consider cardiology consultation and or follow-up if clinically indicated. I am available for cardiology evaluation and consultation if requested by the housing inspector, unless patient already has a elementary school professional. Dr. Maria T Borden. MRCP Board certified in cardiology and sleep medicine. Board certified in nuclear cardiology, adult echocardiography. ANKUR
[2018-03-04] MEDS ORDERED: KETOROLAC TROMETHAMINE INJ/PF 30 MG/1 ML SDV IV ONE (17:02)
[2018-03-04] MEDS ORDERED: OXYCODONE-ACETAMINOPHEN 5-325 MG TABLET PO PRN (17:03)
[2018-03-04] MEDS ORDERED: MORPHINE SULFATE 10 MG/ML INJ IV PRN (17:03)
--- NOTE | 2018-03-04 20:32 | PDOC PROGRESS REPORT ---
Subjective Progress Note for:: 03/04/18 Subjective:: The patient is still having significant substernal discomfort Reason For Visit: CHEST PAIN Physical Exam Vital Signs: Temp Pulse Resp BP Pulse Ox 98.1 F 112 H 19 120/72 96 03/04/18 12:13 03/04/18 14:00 03/04/18 12:13 03/04/18 12:13 03/04/18 12:13 Intake & Output 03/03/18 03/04/18 03/05/18 06:59 06:59 06:59 Intake Total 237 Balance 237 General appearance: PRESENT: cooperative, mild distress, well-developed Head exam: PRESENT: atraumatic, normocephalic Eye exam: PRESENT: conjunctiva pink, EOMI. ABSENT: scleral icterus Ear exam: PRESENT: normal external ear exam Mouth exam: PRESENT: dry mucosa Neck exam: PRESENT: full ROM. ABSENT: carotid bruit, JVD, lymphadenopathy Respiratory exam: PRESENT: clear to auscultation duane, symmetrical, unlabored. ABSENT: rales, rhonchi, wheezes Cardiovascular exam: PRESENT: +S1, +S2, tachycardia GI/Abdominal exam: PRESENT: normal bowel sounds, soft. ABSENT: firm, guarding, tenderness Extremities exam: ABSENT: calf tenderness, pedal edema Neurological exam: PRESENT: alert, awake, oriented to person, oriented to place , oriented to time, oriented to situation Psychiatric exam: PRESENT: appropriate affect - Affect reflects his discomfort Focused psych exam: ABSENT: euphoric, paranoid, restlessness Results Impressions: Chest X-Ray 03/02/18 13:35 IMPRESSION: No acute findings Venous Doppler Study 03/02/18 14:20 IMPRESSION: NO EVIDENCE OF DVT OR SVT IN THE LEFT LEG. Chest/Abdomen CTA 03/02/18 16:24 IMPRESSION: NORMAL CTA OF THE CHEST. NO PULMONARY EMBOLI. Assessment & Plan - Diagnosis (1) Depressed left ventricular ejection fraction Is this a current diagnosis for this admission?: Yes Plan: The nuclear study revealed no reversible ischemia. However it did suggest a depressed ejection fraction at 38%. I discussed this with cardiology. We have ordered an echocardiogram to confirm function. He may have a cardiomyopathy. He will need to follow-up with cardiology as an outpatient. (2) Chest pain Qualifiers: Chest pain type: unspecified Qualified Code(s): R07.9 - Chest pain, unspecified Is this a current diagnosis for this admission?: Yes Plan: The chest pain is esophageal in etiology. See discussion below. (3) GERD with esophagitis Is this a current diagnosis for this admission?: Yes Plan: The CT scan revealed thickening of the esophagus. I am going to continue the Protonix and Carafate. In addition I have started nifedipine for possible esophageal spasm. He also ordered blood work to rule out any autoimmune etiology. The patient will need to follow-up with gastroenterology and he needs a gastroscopy. (4) Hypothyroidism Qualifiers: Hypothyroidism type: unspecified Qualified Code(s): E03.9 - Hypothyroidism , unspecified Is this a current diagnosis for this admission?: Yes Plan: Continue levothyroxine 112 mcg daily (5) Anxiety Is this a current diagnosis for this admission?: Yes Plan: The patient is still anxious but I believe it is driven by his pain. I have altered his pain medications. He has hydroxyzine scheduled and clonazepam if needed. (6) Alcohol dependence Qualifiers: Substance use status: uncomplicated Qualified Code(s): F10.20 - Alcohol dependence, uncomplicated Is this a current diagnosis for this admission?: Yes Plan: We discussed the need for abstinence from alcohol going forward. As noted above he will follow-up with gastroenterology. I repeated some chemistries including an iron panel and ferritin to rule out the possibility of hemochromatosis. (7) Hypertension Qualifiers: Hypertension type: essential hypertension Qualified Code(s): I10 - Essential (primary) hypertension Is this a current diagnosis for this admission?: Yes Plan: Continue lisinopril. The patient is now also on nifedipine. - Time Time Spent with patient: 35 or more minutes Medications reviewed and adjusted accordingly: Yes Anticipated discharge: Home - Plan Summary Plan Summary: Please note, the patient was planned for discharge yesterday. But the ongoing presence of symptoms and abnormal studies extended his stay. He was changed to inpatient status.
--- NOTE | 2018-03-04 20:33 | Progress Note ---
Provider Note Provider Note: Please note that the patient in fact did not discharged on the . The discharge note will serve as his progress note for that day.
[2018-03-04] MEDS: NIFEDIPINE 10 MG CAPSULE PO SCH (21:16)
[2018-03-04] MEDS: LORAZEPAM INJ 2 MG/1 ML VIAL IV PRN (21:34)
[2018-03-04] MEDS: AMITRIPTYLINE HCL 50 MG TABLET PO SCH (21:36)
[2018-03-04] MEDS: LISINOPRIL 10 MG TABLET PO SCH (21:37)
[2018-03-04] MEDS: ATORVASTATIN CALCIUM 40 MG TABLET PO SCH (21:37)
[2018-03-05] MEDS: NIFEDIPINE 10 MG CAPSULE PO SCH ×3 (03:45→12:05)
[2018-03-05] MEDS: OXYCODONE-ACETAMINOPHEN 5-325 MG TABLET PO PRN ×3 (03:47→12:05)
[2018-03-05 05:25] LABS: ABSOLUTE RETICS # 0.061 10^6/uL (0.028-0.122)
[2018-03-05] MEDS: LEVOTHYROXINE SODIUM 0.112 MG TABLET PO SCH (06:46)
[2018-03-05 06:49] LABS: FOLATE 7.12 ng/mL (>2.76)
[2018-03-05] MEDS: PANTOPRAZOLE SODIUM 40 MG VIAL IV SCH (10:01)
[2018-03-05] MEDS: ENOXAPARIN SODIUM INJ 40 MG/0.4 ML DISP.SYRIN SUBCUT SCH (10:01)
[2018-03-05] MEDS: HYDROXYZINE PAMOATE 25 MG CAPSULE PO SCH ×2 (10:01→14:49)
[2018-03-05] MEDS: LORAZEPAM INJ 2 MG/1 ML VIAL IV PRN (10:22)
--- NOTE | 2018-03-05 10:37 | Progress Note ---
Provider Note Provider Note: The treatment plan for Mr. Mckinnon is as follows: #1 esophagitis with reflux and possible esophageal spasm-the patient will be on an aggressive regimen of proton pump inhibitors as well as Carafate. He will also have nifedipine for possible esophageal spasm. He will be referred to gastroenterology and will need a esophagogastroscopy. #2 coronary disease-a CT angiogram of the chest to rule out pulmonary embolus at the time of admission revealed some coronary atherosclerosis. The patient did have a nuclear stress test. It did not show significant reversible ischemia however the suggested ejection fraction was 38%. The patient had an echocardiogram and the results are pending. The patient will follow up with cardiology for further evaluation and intervention. #3 anxiety-continue amitriptyline and Vistaril #4 hyperlipidemia-continue statin therapy #5 hypothyroidism-continue current levothyroxine dose.
--- NOTE | 2018-03-05 10:47 | EKG REPORT ---
SEVERITY:- ABNORMAL ECG - SINUS RHYTHM NONSPECIFIC IVCD WITH LAD : Confirmed by: Jim Borden 05-Mar-2018 10:45:53
--- NOTE | 2018-03-05 10:47 | EKG REPORT ---
SEVERITY:- ABNORMAL ECG - SINUS TACHYCARDIA VENTRICULAR PREMATURE COMPLEX NONSPECIFIC INTRAVENTRICULAR CONDUCTION DELAY : Confirmed by: Jim Borden 05-Mar-2018 10:45:48
--- NOTE | 2018-03-05 10:55 | PDOC DISCHARGE SUMMARY ---
General - Admit/Disc Date/PCP Admission Date/Primary Care Provider: 03/04/18 16:15 Discharge Date: 03/05/18 - Discharge Diagnosis (1) Depressed left ventricular ejection fraction Is this a current diagnosis for this admission?: Yes Summary: CT angiogram of the chest to rule out pulmonary embolus revealed coronary atherosclerosis. The patient's nuclear stress test suggested a depressed ejection fraction of 38%. This will be confirmed with an echocardiogram. The test was performed but the results are pending. The patient is going to see Dr. Borden who consulted with him in the [facility]. (2) Chest pain Is this a current diagnosis for this admission?: Yes Summary: This chest pain is noncardiac. It is due to the significant esophagitis. (3) GERD with esophagitis Is this a current diagnosis for this admission?: Yes Summary: This was responsible for his chest pain. Until gastroenterology sees him I have prescribed Carafate 1 g before meals and at bedtime as well as Protonix 40 mg daily. I have also put the patient on nifedipine 10 mg every 6 hours for possible esophageal spasm. This will also help with his hypertension. (4) Hypothyroidism Is this a current diagnosis for this admission?: Yes Summary: Continue current dose of levothyroxine. Follow-up with primary care for surveillance blood work. (5) Anxiety Is this a current diagnosis for this admission?: Yes Summary: Continue Vistaril and amitriptyline as previously prescribed. (6) Alcohol dependence Is this a current diagnosis for this admission?: Yes (7) Hypertension Is this a current diagnosis for this admission?: Yes Summary: Continue lisinopril. The patient was on propranolol. He is now on nifedipine which will help with hypertension as well as potential esophageal spasm. (8) Coronary artery calcification seen on computed tomography Is this a current diagnosis for this admission?: Yes Summary: The patient will continue his lisinopril and atorvastatin. He will also be on nifedipine primarily for esophageal spasm. I am avoiding aspirin because of the severe esophagitis. Follow-up with cardiology. - Additional Information Resuscitation Status: Full Code Discharge Diet: Other (Comments) - No caffeine or spicy food. Stick with soft foods. Discharge Activity: Balance Activity w/Rest Prescriptions: Nifedipine [Procardia 10 mg Capsule] 10 mg PO Q6 #120 capsule Pantoprazole Sodium [Protonix] 40 mg PO DAILY 30 Days #30 tablet. Sucralfate [Carafate 1 gm Tablet] 1 gm PO ACHS #120 tablet Sucralfate [Carafate 1 gm Tablet] 1 gm PO ACHS #120 tablet Home Medications: Amitriptyline HCl [Elavil 50 mg Tablet] 100 mg PO QHS 03/02/18 Atorvastatin Calcium [Lipitor 40 mg Tablet] 40 mg PO QHS 03/02/18 Duloxetine HCl [Cymbalta] 60 mg PO DAILY 03/02/18 Hydroxyzine Pamoate [Vistaril 25 mg Capsule] 25 mg PO TID 03/02/18 Levothyroxine Sodium [Synthroid 0.112 mg Tablet] 0.112 mg PO Q6AM 03/02/18 Lisinopril [Zestril] 10 mg PO QHS 03/02/18 Pantoprazole Sodium [Protonix] 40 mg PO DAILY 30 Days #30 tablet. 03/03/18 Sucralfate [Carafate 1 gm Tablet] 1 gm PO ACHS #120 tablet 03/03/18 Nifedipine [Procardia 10 mg Capsule] 10 mg PO Q6 #120 capsule 03/05/18 Sucralfate [Carafate 1 gm Tablet] 1 gm PO ACHS #120 tablet 03/05/18 History of Present Illness History of Present Illness: JUAN VERGARA is a 52 year old male who was admitted last evening for substernal chest pain. He has a family history of heart disease. He states that he had an echocardiogram in the past and they said he had a "big heart" but he was unaware of details. His serial troponins x4 were less than the detectable limit of 0.012. He did go down for a stress test but was having substernal discomfort. The stress test was not done. He should follow-up with cardiology as an outpatient (coronary artery disease seen on CT angiogram of the chest) as well as gastroenterology for the high likelihood of reflux or possibly hiatal hernia. Hospital Course Hospital Course: The patient's hospital course was complicated by his severe substernal pain. He was scheduled for a stress test on a treadmill but because of the pain this was canceled. Cardiology was consulted. The patient then had a nuclear stress test. There was no obvious reversible ischemia however the computed ejection fraction was low at 38%. The patient has had an echocardiogram but the result is pending. Coronary atherosclerosis was seen on a CT scan of the chest. The patient is on nifedipine, lisinopril and atorvastatin. I have not suggested aspirin daily because of the current esophagitis. His medications for the anxiety and hypothyroidism will continue as ordered. I have stressed abstinence from alcohol. The patient's is very proactive and already has [facility] as well as the patient's primary care provider to help set up follow-up appointments. Physical Exam Vital Signs: Temp Pulse Resp BP Pulse Ox 97.5 F 96 18 120/72 96 03/05/18 08:26 03/05/18 08:26 03/05/18 08:26 03/05/18 08:26 03/05/18 08:26 Intake & Output 03/04/18 03/05/18 03/06/18 06:59 06:59 06:59 Intake Total 1569 Balance 1569 Weight 95.8 kg General appearance: PRESENT: cooperative, well-developed, other - Still with moderate distress from substernal pain Head exam: PRESENT: atraumatic, normocephalic Eye exam: PRESENT: conjunctiva pink, EOMI. ABSENT: scleral icterus Ear exam: PRESENT: normal external ear exam Neck exam: PRESENT: full ROM. ABSENT: carotid bruit, JVD, lymphadenopathy Respiratory exam: PRESENT: clear to auscultation duane, symmetrical, unlabored. ABSENT: crackles, rales, rhonchi, stridor, wheezes Cardiovascular exam: PRESENT: RRR, +S1, +S2 GI/Abdominal exam: PRESENT: diminished bowel sounds, soft. ABSENT: rebound, tenderness Extremities exam: ABSENT: calf tenderness, pedal edema Musculoskeletal exam: PRESENT: normal inspection Neurological exam: PRESENT: alert, awake, oriented to person, oriented to place , oriented to time, oriented to situation, CN II-XII grossly intact Psychiatric exam: PRESENT: appropriate affect, normal mood. ABSENT: agitated Skin exam: PRESENT: dry, intact, warm. ABSENT: cyanosis, rash Results Laboratory Results: 03/05/18 03/05/18 04:58 04:58 Retic Count (auto) 1.60 Absolute Retic 0.061 Iron 102.0 TIBC 256 % Saturation 40 Ferritin 198.00 Vitamin B12 446.0 Folate 7.12 Impressions: Chest X-Ray 03/02/18 13:35 IMPRESSION: No acute findings Venous Doppler Study 03/02/18 14:20 IMPRESSION: NO EVIDENCE OF DVT OR SVT IN THE LEFT LEG. Chest/Abdomen CTA 03/02/18 16:24 IMPRESSION: NORMAL CTA OF THE CHEST. NO PULMONARY EMBOLI. Qualifiers - * PATIENT BEING DISCHARGED WITH ANY OF THE FOLLOWING DIAGNOSIS: No Plan Discharge Plan: Follow-up with cardiology, gastroenterology and primary care as noted above. Time Spent: Greater than 30 Minutes
--- NOTE | 2018-03-05 11:00 | XCELERA REPORT ---
[address] [address] Transthoracic Echocardiogram Report Name: JUAN VERGARA Age: 52 yrs Gender: Male : 1965 Patient Status: Inpatient Patient Location: [address] [place], [place] [address] Study Date: 03/04/2018 06:59 PM Height: 71 in Weight: 202 lb BSA: 2.1 m2 Procedure: A complete two-dimensional transthoracic echocardiogram was performed (2D, M-mode, spectral and color flow Doppler). The study was technically difficult with many images being suboptimal in quality. Reason For Study: chest pain, CAD Ordering Physician: AAYUSH STEWART Performed By: Brigid Humphreys Interpretation Summary The Ejection Fraction estimate is 50-55% Left ventricular systolic function is borderline reduced. There is mild concentric left ventricular hypertrophy. The left ventricle is grossly normal size. Doppler measurements suggest pseudonormalized left ventricular relaxation, which is associated with grade II/IV or mild to moderate diastolic dysfunction Wall motion cannot be accurately commented on, but no definite regional wall motion abnormalities noted. The right ventricular systolic function is normal. The right ventricle is borderline dilated. Borderline left atrial enlargement. The right atrium is normal in size There is a trace amount of mitral regurgitation There is no mitral valve stenosis. No aortic regurgitation is present. There is no aortic valve stenosis There is a trace or physiologic amount of tricuspid regurgitation Tricuspid regurgitation jet envelope not well defined to measure RV systolic pressure accurately. The aortic root is not well visualized but is probably normal size. The inferior vena cava was not well visualized There is no pericardial effusion. MMode/2D Measurements & Calculations RVDd: 2.6 cm LVIDd: 5.2 cm FS: 29.4 % Ao root diam: 2.4 cm IVSd: 0.89 cm LVIDs: 3.7 cm EDV(Teich): 130.8 ml Ao root area: 4.6 cm2 LVPWd: 1.1 cm ESV(Teich): 57.7 ml LA dimension: 3.6 cm EF(Teich): 55.9 % Doppler Measurements & Calculations MV E max adonis: MV P1/2t max adonis: Ao V2 max: LV V1 max P.2 cm/sec 79.9 cm/sec 132.0 cm/sec 4.6 mmHg MV A max adonis: MV P1/2t: 50.6 msec Ao max PG: LV V1 max: 82.9 cm/sec MVA(P1/2t): 4.3 cm2 7.0 mmHg 107.1 cm/sec MV E/A: 0.75 MV dec slope: 462.6 cm/sec2 MV dec time: 0.21 sec TV V2 max: PA V2 max: TR max adonis: MV P1/2t-pr_phl: 109.9 cm/sec 107.2 cm/sec 152.0 cm/sec 50.6 msec TV max PG: PA max P.6 mmHg TR max P.8 mmHg 9.2 mmHg Left Ventricle The left ventricle is grossly normal size. There is mild concentric left ventricular hypertrophy. Left ventricular systolic function is borderline reduced. The Ejection Fraction estimate is 50-55%. Doppler measurements suggest pseudonormalized left ventricular relaxation, which is associated with grade II/IV or mild to moderate diastolic dysfunction. Wall motion cannot be accurately commented on, but no definite regional wall motion abnormalities noted. Right Ventricle The right ventricle is borderline dilated. There is normal right ventricular wall thickness. The right ventricular systolic function is normal. Atria The right atrium is normal in size. Borderline left atrial enlargement. Interarterial septum not well visualized and not well dopplered. Cannot comment on ASD/PFO presence. Mitral Valve The mitral valve leaflets are sclerotic, but show no functional abnormalities. There is no mitral valve stenosis. There is a trace amount of mitral regurgitation. Aortic Valve The aortic valve is not well visualized secondary to technical limitations. There is no aortic valve stenosis. No aortic regurgitation is present. Tricuspid Valve The tricuspid valve is not well visualized secondary to technical limitations. There is no tricuspid stenosis. There is a trace or physiologic amount of tricuspid regurgitation. Tricuspid regurgitation jet envelope not well defined to measure RV systolic pressure accurately. Pulmonic Valve The pulmonic valve is not well visualized. Great Vessels The aortic root is not well visualized but is probably normal size. The inferior vena cava was not well visualized. Effusions There is no pericardial effusion. : AAYUSH STEWART > Jim Borden
[2018-03-05 15:12] VITALS: BP 107/64
--- NOTE | 2018-03-05 22:39 | PDOC PROGRESS REPORT ---
Subjective Progress Note for:: 03/04/18 Subjective:: Patient seems to be doing better with gradual improvement. Patient still having intermittent chest pain. Patient denying any PND, orthopnea. Patient denied any sustained palpitations, dizziness, syncope, near syncope. Patient denying any fever chills. Patient denying any other significant discomfort. Patient is maintaining sinus rhythm. Review of systems: Rest review of systems negative. Medications: Medications have been reviewed. Reason For Visit: CHEST PAIN Physical Exam Vital Signs: Temp Pulse Resp BP Pulse Ox 98.3 F 100 19 109/74 96 03/04/18 19:56 03/04/18 19:56 03/04/18 19:56 03/04/18 19:56 03/04/18 19:56 Intake & Output 03/03/18 03/04/18 03/05/18 06:59 06:59 06:59 Intake Total 237 Balance 237 Exam: GENERAL: well-nourished and in no acute distress. Alert and oriented x3 HEAD: Atraumatic, normocephalic. EYES: SHIRLEY, sclera anicteric, conjunctiva are normal. ENT: Moist mucous membranes. No oral ulcerations or bleeding gums noted. No obvious ear, nose or throat abnormalities noted. NECK: supple without lymphadenopathy. Trachea is central. No cervical or axillary lymphadenopathy noted. Carotids are 2+, JVD WNL LUNGS: Breath sounds clear bilaterally. No wheezes rales or rhonchi noted. No significant dullness noted on percussion. CHEST: Palpation of the chest wall shows no significant chest wall tenderness. 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 ABDOMEN: Soft, no significant tenderness appreciated, normoactive bowel sounds. No guarding, no rebound. No rigidity noted . No masses appreciated. EXTREMITIES: Pedal pulses are 1-2+, no calf tenderness noted. No clubbing or cyanosis. negative pedal edema noted NEUROLOGICAL: Focused neurological exam showed no significant neurologic deficit. Normal speech, no focal weakness appreciated. PSYCH: Normal mood, normal affect. Judgment and insight within normal limits. SKIN: No significant ecchymosis, skin is noted to be warm. MUSCULOSKELETAL EXAM: No significant acute joint swelling noted. Results EKG Comments: Telemetry shows sinus rhythm without any sustained tachycardia or bradycardia. Impressions: Chest X-Ray 03/02/18 13:35 IMPRESSION: No acute findings Venous Doppler Study 03/02/18 14:20 IMPRESSION: NO EVIDENCE OF DVT OR SVT IN THE LEFT LEG. Chest/Abdomen CTA 03/02/18 16:24 IMPRESSION: NORMAL CTA OF THE CHEST. NO PULMONARY EMBOLI. Assessment & Plan - Diagnosis (1) Chest pain Qualifiers: Chest pain type: unspecified Qualified Code(s): R07.9 - Chest pain, unspecified Is this a current diagnosis for this admission?: Yes (2) GERD with esophagitis Is this a current diagnosis for this admission?: Yes (3) Hypertension Qualifiers: Hypertension type: essential hypertension Qualified Code(s): I10 - Essential (primary) hypertension Is this a current diagnosis for this admission?: Yes (4) Hypothyroidism Qualifiers: Hypothyroidism type: unspecified Qualified Code(s): E03.9 - Hypothyroidism , unspecified Is this a current diagnosis for this admission?: Yes (5) Tachycardia Is this a current diagnosis for this admission?: Yes (6) Hyperlipidemia Qualifiers: Hyperlipidemia type: unspecified Qualified Code(s): E78.5 - Hyperlipidemia , unspecified Is this a current diagnosis for this admission?: Yes (7) Coronary artery calcification seen on computed tomography Is this a current diagnosis for this admission?: Yes (8) Alcohol dependence Qualifiers: Substance use status: uncomplicated Qualified Code(s): F10.20 - Alcohol dependence, uncomplicated Is this a current diagnosis for this admission?: Yes (9) Anxiety Is this a current diagnosis for this admission?: Yes - Notes Notes: Chest pain: Patient has been noted to have coronary calcification. A nuclear stress test results were discussed with the patient in detail. Patient is felt to have relatively low risk nuclear stress test. Patient chest pain is felt to be atypical. At this point have recommended aggressive risk factor modification and medical management. A 2D echo was ordered. This was because EKG gated imaging shows depressed LVEF. Patient does have history of significant alcohol use in the past.. Gastroesophageal reflux: Patient patient to be continued on proton pump inhibitor. Patient will need endoscopy at a later date. Hypertension: Blood pressure goal should be 135/85 or less in this young patient with underlying CAD. Hypothyroidism: I am checking a TSH level. Patient is tachycardic therefore may have iatrogenic hyperthyroidism. Hyperlipidemia: Agree with high potency statin therapy. Coronary calcification: Treat with statins. Nuclear stress test scheduled. 2D echo is scheduled. Alcohol dependence: Discussed that it can cause cardiomyopathy, distal esophagitis etc. patient has been advised abstinence. Anxiety: Possible withdrawal. Tachycardia: Possible withdrawal versus excess thyroid replacement versus anxiety. This is noted to be stable. - Time Time with patient: Greater than 35 minutes - CODE STATUS was discussed, patient remains full code. Surrogate decision-maker unchanged. Multiple medical problems were addressed. More than 50% of the time spent coordinating care, discussing management plans with involved caregivers. Management plans discussed with involved personnels. Medical decision making was of moderate to high complexity, patient's has multiple comorbidities. Medications reviewed and adjusted accordingly: Yes
--- NOTE | 2018-03-05 22:43 | PDOC PROGRESS REPORT ---
Subjective Progress Note for:: 03/05/18 Subjective:: Patient seems to be doing better with gradual improvement. Patient still having intermittent chest pain, however the pain is clearly on fluid intake and food intake rather than exertional. Patient noted to have evidence of esophagitis on CT scan. Patient denying any PND, orthopnea. Patient denied any sustained palpitations, dizziness, syncope, near syncope. Patient denying any fever chills. Patient denying any other significant discomfort. Patient is maintaining sinus rhythm. Review of systems: Rest review of systems negative. Medications: Medications have been reviewed. Reason For Visit: CHEST PAIN Physical Exam Vital Signs: Temp Pulse Resp BP Pulse Ox 97.5 F 96 18 103/64 96 03/05/18 14:29 03/05/18 14:29 03/05/18 14:29 03/05/18 14:29 03/05/18 14:29 Intake & Output 03/04/18 03/05/18 03/06/18 06:59 06:59 06:59 Intake Total 1569 Balance 1569 Weight 95.8 kg Exam: GENERAL: well-nourished and in no acute distress. Alert and oriented x3 HEAD: Atraumatic, normocephalic. EYES: SHIRLEY, sclera anicteric, conjunctiva are normal. ENT: Moist mucous membranes. No oral ulcerations or bleeding gums noted. No obvious ear, nose or throat abnormalities noted. NECK: supple without lymphadenopathy. Trachea is central. No cervical or axillary lymphadenopathy noted. Carotids are 2+, JVD WNL LUNGS: Breath sounds clear bilaterally. No wheezes rales or rhonchi noted. No significant dullness noted on percussion. CHEST: Palpation of the chest wall shows no significant chest wall tenderness. 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 ABDOMEN: Soft, no significant tenderness appreciated, normoactive bowel sounds. No guarding, no rebound. No rigidity noted . No masses appreciated. EXTREMITIES: Pedal pulses are 1-2+, no calf tenderness noted. No clubbing or cyanosis. negative pedal edema noted NEUROLOGICAL: Focused neurological exam showed no significant neurologic deficit. Normal speech, no focal weakness appreciated. PSYCH: Normal mood, normal affect. Judgment and insight within normal limits. SKIN: No significant ecchymosis, skin is noted to be warm. MUSCULOSKELETAL EXAM: No significant acute joint swelling noted. Results Laboratory Results: 03/05/18 03/05/18 04:58 04:58 Retic Count (auto) 1.60 Absolute Retic 0.061 Iron 102.0 TIBC 256 % Saturation 40 Ferritin 198.00 Vitamin B12 446.0 Folate 7.12 EKG Comments: Telemetry shows sinus rhythm without any sustained tachycardia or bradycardia. Impressions: Chest X-Ray 03/02/18 13:35 IMPRESSION: No acute findings Venous Doppler Study 03/02/18 14:20 IMPRESSION: NO EVIDENCE OF DVT OR SVT IN THE LEFT LEG. Chest/Abdomen CTA 03/02/18 16:24 IMPRESSION: NORMAL CTA OF THE CHEST. NO PULMONARY EMBOLI. Assessment & Plan - Diagnosis (1) Chest pain Qualifiers: Chest pain type: unspecified Qualified Code(s): R07.9 - Chest pain, unspecified Is this a current diagnosis for this admission?: Yes (2) GERD with esophagitis Is this a current diagnosis for this admission?: Yes (3) Hypertension Qualifiers: Hypertension type: essential hypertension Qualified Code(s): I10 - Essential (primary) hypertension Is this a current diagnosis for this admission?: Yes (4) Hypothyroidism Qualifiers: Hypothyroidism type: unspecified Qualified Code(s): E03.9 - Hypothyroidism , unspecified Is this a current diagnosis for this admission?: Yes (5) Tachycardia Is this a current diagnosis for this admission?: Yes (6) Hyperlipidemia Qualifiers: Hyperlipidemia type: unspecified Qualified Code(s): E78.5 - Hyperlipidemia , unspecified Is this a current diagnosis for this admission?: Yes (7) Coronary artery calcification seen on computed tomography Is this a current diagnosis for this admission?: Yes (8) Alcohol dependence Qualifiers: Substance use status: uncomplicated Qualified Code(s): F10.20 - Alcohol dependence, uncomplicated Is this a current diagnosis for this admission?: Yes (9) Anxiety Is this a current diagnosis for this admission?: Yes - Notes Notes: Chest pain: Patient has been noted to have coronary calcification. A nuclear stress test results were discussed with the patient in detail. Patient is felt to have relatively low risk nuclear stress test. Patient chest pain is felt to be atypical. At this point have recommended aggressive risk factor modification and medical management. 2D echo shows borderline depressed LVEF. No significant valvular abnormalities noted. Diastolic dysfunction noted. Gastroesophageal reflux: Patient patient to be continued on proton pump inhibitor. Patient will need endoscopy at a later date. Hypertension: Blood pressure goal should be 135/85 or less in this young patient with underlying CAD. Hypothyroidism: TSH level came back normal. Reason for tachycardia not clear but would recommend beta-lyn therapy. Hyperlipidemia: Agree with high potency statin therapy. Coronary calcification: Continue with statins and other risk factor modifications.. Alcohol dependence: Discussed that it can cause cardiomyopathy, distal esophagitis etc. patient has been advised abstinence. Anxiety: Seems improved. Tachycardia: This is noted to be stable. - Time Time with patient: Greater than 35 minutes - CODE STATUS was discussed, patient remains full code. Surrogate decision-maker unchanged. Multiple medical problems were addressed. More than 50% of the time spent coordinating care, discussing management plans with involved caregivers. Management plans discussed with involved personnels. Medical decision making was of moderate to high complexity, patient's has multiple comorbidities. All cardiac related evaluations were again discussed with the patient. Questions were answered. Medications reviewed and adjusted accordingly: Yes
[2018-03-08 12:37] LABS: ANTINUCLEAR ANTIBODIES Negative (Negative)
[2018-03-08 13:29] LABS: SCLERODERMA-70 ANTIBODIES <0.2 AI (0.0-0.9)
== END 2018-03-05 15:00 | disposition home or self-care (01) | DRG 392 ==
LOC: ER 13:32 → EH 19:32 → 4N 22:30 → OBSVTOIN 03-04 16:15
PROVIDERS: ADMIT Internal Medicine; ATTEND Internal Medicine
DX: K21.0 Gastro-esophageal reflux disease with esophagitis (principal); I25.10 Atherosclerotic heart disease of native coronary artery without angina pectoris; E03.9 Hypothyroidism, unspecified; F10.20 Alcohol dependence, uncomplicated; Y90.0 Blood alcohol level of less than 20 mg/100 ml; I10 Essential (primary) hypertension; F32.9 Major depressive disorder, single episode, unspecified; F41.1 Generalized anxiety disorder; E78.00 Pure hypercholesterolemia, unspecified; K22.4 Dyskinesia of esophagus; Z23 Encounter for immunization; Z79.899 Other long term (current) drug therapy; Z82.49 Family history of ischemic heart disease and other diseases of the circulatory system; Z90.79 Acquired absence of other genital organ(s); Z90.49 Acquired absence of other specified parts of digestive tract
CPT/HCPCS: 36415; 71045; 71275; 78452; 80053; 80061; 80307; 81001; 82550; 82553; 82607; 82728; 82746; 83036; 83540; 83550; 83880; 84443; 84484; 85025; 85045; 85379; 86038; 86235; 90471; 90686; 93005; 93010; 93017; 93306; 93971; 96361; 96374; 96375; 96376; 99285; A9500; G0008; G0378; J0280; J1170; J1650; J1885; J2060; J2270; J2405; J2785; J3490; J7030; S0164

== ENCOUNTER 2018-03-29 08:41 | Day surgery (SDC) | payer OTHER ==
[~2018-03-29 08:41] MED LIST: PROPOFOL INJ 200 MG/20 ML VIAL IV ONE
[2018-03-29] MEDS ORDERED: ONDANSETRON HCL INJ/PF 4 MG/2 ML SDV ONE (09:40)
[2018-03-29 11:20] VITALS: BP 110/73
--- NOTE | 2018-03-29 14:40 | Operative Report ---
Operative Report DATE OF SURGERY: 03/29/18 Operative Report: The risks, benefits and alternatives of the procedure including the risk of bleeding, perforation requiring surgery are explained to the patient in detail and informed consent was obtained. The patient is placed in the left, lateral decubital position. Timeout was called. Propofol medications administered. A rectal examination is done which did not reveal any masses, tears or fissures. An Olympus videoscope was introduced into the patient's rectum. The scope was then carefully advanced all the way to the cecum. The cecum was identified by the usual anatomical landmarks of the ileocecal valve as well as the appendiceal office. Photodocumentation is obtained. The scope was then sequentially pulled back via the various segments of the colon including the ascending colon, hepatic flexure, transverse colon, splenic flexure, descending colon and finally into the rectosigmoid portions of the colon. Retroflexion maneuver is performed. The risks benefits and alternatives of the procedure explained to the patient in detail and informed consent is obtained.A GIF Olympus video scope was inserted into the patient's mouth and hypopharynx, the esophagus is identified intubated and insufflated, the scope was then advanced through the esophagus stomach and duodenum, retroflexion maneuver is done the esophagus stomach and first and second portions of the duodenum examined PREOPERATIVE DIAGNOSIS: History of reported colon resection in the past, for surveillance. Gastroesophageal reflux disease POSTOPERATIVE DIAGNOSIS: Descending colon polyp that was removed via biopsy forceps. Internal hemorrhoids. Diverticulosis without any evidence of diverticulitis. Hiatal hernia. Gastritis status post biopsy rule out Helicobacter pylori OPERATION: Colonoscopy with biopsy. EGD with biopsy SURGEON: BIBIANA PERRY ANESTHESIA: LMAC TISSUE REMOVED OR ALTERED: As noted above. COMPLICATIONS: None. ESTIMATED BLOOD LOSS: None. INTRAOPERATIVE FINDINGS: As noted above. PROCEDURE: Patient tolerated the procedure well. No immediate postprocedure complications are noted. Patient discharged in good condition. Discharge date 03/29/2018. Discharge diet: Regular. Discharge activity: Regular. 2-3-week follow-up to discuss findings. Patient is instructed to call the office or proceed to the emergency room should there be any further problems or questions. 5-year surveillance colonoscopy.
== END 2018-03-29 10:11 | disposition home or self-care (01) ==
LOC: END 08:41
PROVIDERS: ATTEND Internal Medicine Gastroenterology
DX: K57.30 Diverticulosis of large intestine without perforation or abscess without bleeding (principal); K64.8 Other hemorrhoids; D12.4 Benign neoplasm of descending colon; K44.9 Diaphragmatic hernia without obstruction or gangrene; K31.9 Disease of stomach and duodenum, unspecified; I10 Essential (primary) hypertension; E78.5 Hyperlipidemia, unspecified; E03.9 Hypothyroidism, unspecified; Z79.899 Other long term (current) drug therapy; R06.02 Shortness of breath; I20.9 Angina pectoris, unspecified; R01.1 Cardiac murmur, unspecified; G43.909 Migraine, unspecified, not intractable, without status migrainosus
CPT/HCPCS: 43239; 45380; 88342 ×2; 88305 ×2; J2405; J2704; 813

== ENCOUNTER → 2019-04-06 | Outpatient (CLI) | payer OTHER ==
--- NOTE | 2019-04-07 12:32 | RADIOLOGY REPORT (SQ) ---
EXAM DESCRIPTION: CT SINUSES FOR ENT COMPLETED DATE/TIME: 04/06/2019 5:26 pm REASON FOR STUDY: J01.91 ACUTE RECURRENT SINUSITIS, UNSPECIFIED J01.91 ACUTE RECURRENT SINUSITIS, U NSPECIFIED COMPARISON: None. TECHNIQUE: Noncontrast scanning through the paranasal sinuses using bone algorithm. Reconstructed MPR images reviewed. All images stored on PACS. All CT scanners at this facility use dose modulation, iterative reconstruction, and/or weight based d osing when appropriate to reduce radiation dose to as low as reasonably achievable (ALARA). [facility]: Dose Right [facility]: CareDose [facility]: Dose Right [facility]: Teradose 4D [facility]: [employer] RADIATION DOSE: 47mGy. LIMITATIONS: None. FINDINGS: Right sinuses and drainage pathways: Post-surgical changes: None. Frontal sinus: Normal. Frontoethmoidal Recess: Normal. Anterior Ethmoid Sinuses: Normal. Posterior Ethmoid Sinuses: Normal. Sphenoid Sinus: Normal. Sphenoethmoidal Recess: Normal. Maxillary Sinus: Normal. Ostiomeatal Complex: Normal. Left Sinuses and Drainage Pathways: Post-Surgical Changes: None. Frontal Sinus: Normal. Frontoethmoidal Recess: Normal. Anterior Ethmoid Sinuses: Normal. Posterior Ethmoid Sinuses: Normal. Sphenoid Sinus: Normal. Sphenoethmoidal Recess: Normal. Maxillary Sinus: Normal. Ostiomeatal Complex: Normal. Right Olfactory Fossa: No polyps. Left Olfactory Fossa: No polyps. Middle Turbinate Nancy Bullosa: No. Paradoxical Middle Turbinate: No. Atelectatic Uncinated Process: No. Frontal Robert Cell Type I: Bilateral Frontal Robert Cell Type II: Bilateral Interfrontal Sinus Septal Cell: None. Supra-Orbital Ethmoid: Bilateral Frontal Bullar Cell: None. Suprabullar Bullar Cell: None. Sphenoethmoidal (Onodi) Cell: None. Pneumatization of the Anterior Clinoid Processes: No Hypoplastic Maxillary Sinus: None. Osteoneogenesis: None. Bone Dehiscence:None. Nasal Cavity: Normal. Nasal Septum: Midline Anatomic Variants: Right Vidian Canal: Normal. Left Vidian Canal: Normal. IMPRESSION: NO EVIDENCE OF ACUTE OR CHRONIC SINUSITIS. TECHNICAL DOCUMENTATION: JOB ID: [id number] Quality ID # [id number]: Final reports with documentation of one or more dose reduction techniques (e.g., Au tomated exposure control, adjustment of the mA and/or kV according to patient size, use of iterative reconstruction technique) 2010 [employer]- All Rights Reserved Reading location - IP/workstation name: [email or web address]
== END ==
LOC: RAD 16:51
PROVIDERS: ATTEND Otolaryngology
DX: J01.91 Acute recurrent sinusitis, unspecified (principal)
CPT/HCPCS: 70486